=== PATIENT | female | born 1995 | race African-American/Black ===

== ENCOUNTER 2017-11-07 15:06 | Emergency (ER) | payer OTHER, MEDICAID ==
[~2017-11-07] VITALS: Ht 175.3 cm; Wt 160.1 kg
[2017-11-07 15:44] LABS: Urine Bacteria NONE SEEN /hpf (None Seen); Urine Blood Negative /uL (Negative); Urine Mucus FEW (None Seen); Urine Pregnacy Test Negative (Negative); Urine Specific Gravity 1.029 (1.001-1.035); Urine WBC 1 /hpf (0 - 5)
[2017-11-07 15:49] LABS: Alcohol, Urine < 3.0 mg/dL (0-5); Amphetamine Screen, Urine NEGATIVE (NEGATIVE); Barbiturate Scree,Urine NEGATIVE (NEGATIVE); Benzodiazephine Screen, Urine NEGATIVE (NEGATIVE); Cannabinoid Screen, Urine NEGATIVE (NEGATIVE); Cocaine Screen, Urine NEGATIVE (NEGATIVE); Opiate Scree,Urine NEGATIVE (NEGATIVE); Phencyclidine Screen, Urine NEGATIVE (NEGATIVE)
[2017-11-07 15:56] LABS: Eosinophils # (auto) 0.1 uL; Hemoglobin 12.2 g/dL (12.2-16.2); Monocytes # (auto) 0.5 uL; Nucleated Red Blood Cells % 0.2 %; White Blood Cell 6.9 10^3/uL (4.4-10.8)
[2017-11-07 15:58] LABS: Basophils # (auto) 0 uL; Basophils % (auto) 0.6 % (0.0-2.0); Eosinophils % (auto) 1.4 % (0.0-7.0); Hematocrit 37.4 % (36.0-46.0); Lymphocytes % (auto) 43.3 % (10.0-50.0); Mean Corpuscular Hemoglobin 25.2 pg (28.0-32.0); Mean Corpuscular Hgb Conc. 32.6 g/dL (32.0-36.0); Mean Corpuscular Volume 77.5 fL (80.0-100.0); Monocytes % (auto) 7.3 % (0.0-12.0); Neutrophils # (auto) 3.3 uL; Neutrophils % (auto) 47.4 % (37.0-80.0); Platelet Count (auto) 344 10^3/uL (140-450); Red Blood Cells 4.83 10^6/uL (4.0-5.20); Red Cell Distribution Width 14.8 % (11.8-14.3)
[2017-11-07 16:14] LABS: Albumin 3.1 g/dL (3.4-5.0); Anion Gap 6 (5-15); Blood Urea Nitrogen 13 mg/dL (7-18); Calcium 8.3 mg/dL (8.5-10.1); Carbon Dioxide 27 mmol/L (21-32); Chloride 109 mmol/L (98-107); Glucose 99 mg/dL (74-106); Potassium 3.9 mmol/L (3.5-5.1); Sodium 142 mmol/L (136-145)
[2017-11-07 16:16] LABS: Alanine Aminotransferase 30 U/L (13-56); Aspartate Aminotransferase 21 U/L (15-37); BUN/Creatinine Ratio 16.3; GFR African American 115 mL/min; GFR Non-African American 95 mL/min
[2017-11-07 16:20] LABS: Alkaline Phosphatase 108 U/L (45-117); Bilirubin, Total 0.3 mg/dL (0.2-1.0); Total Protein 7.8 g/dL (6.4-8.2)
[2017-11-07 18:40] VITALS: BP 162/97
== END 2017-11-07 19:09 | disposition home or self-care (01) ==
LOC: ER 15:06
DX: R07.89 Other chest pain (principal); I10 Essential (primary) hypertension; Z87.891 Personal history of nicotine dependence
CPT/HCPCS: 36415; 71046; 80053; 80307; 81001; 81025; 84484; 85025; 85379; 93005

== ENCOUNTER 2017-11-20 03:28 | Emergency (ER) | payer OTHER, MEDICAID ==
[~2017-11-20] VITALS: Ht 165.1 cm; Wt 158.8 kg
[2017-11-20 03:54] VITALS: BP 164/99
== END 2017-11-20 07:16 | disposition left against medical advice (07) ==
LOC: ER 03:30
DX: R20.2 Paresthesia of skin (principal); Z53.21 Procedure and treatment not carried out due to patient leaving prior to being seen by health care provider
CPT/HCPCS: 70450

== ENCOUNTER 2017-11-20 12:13 | Emergency (ER) | payer OTHER, MEDICAID ==
[~2017-11-20] VITALS: Ht 175.3 cm; Wt 159.7 kg
[2017-11-20 13:40] LABS: Basophils # (auto) 0 uL; Hemoglobin 13.1 g/dL (12.2-16.2); Lymphocytes # (auto) 2.4 uL; Monocytes # (auto) 0.6 uL; Nucleated Red Blood Cells % 0.1 %
[2017-11-20 13:41] LABS: Basophils % (auto) 0.4 % (0.0-2.0); Eosinophils # (auto) 0.1 uL; Eosinophils % (auto) 0.6 % (0.0-7.0); Hematocrit 39.3 % (36.0-46.0); Mean Corpuscular Hemoglobin 25.5 pg (28.0-32.0); Mean Corpuscular Hgb Conc. 33.4 g/dL (32.0-36.0); Mean Corpuscular Volume 76.4 fL (80.0-100.0); Monocytes % (auto) 7.8 % (0.0-12.0); Neutrophils % (auto) 61.2 % (37.0-80.0); Platelet Count (auto) 338 10^3/uL (140-450); Red Blood Cells 5.14 10^6/uL (4.0-5.20); Red Cell Distribution Width 15.1 % (11.8-14.3); White Blood Cell 8.2 10^3/uL (4.4-10.8)
[2017-11-20 13:49] VITALS: BP 144/89
[2017-11-20 13:54] LABS: Albumin 3.6 g/dL (3.4-5.0); Calcium 8.5 mg/dL (8.5-10.1); Potassium 3.4 mmol/L (3.5-5.1)
[2017-11-20 14:07] LABS: Bilirubin, Total 0.6 mg/dL (0.2-1.0); Total Protein 8.7 g/dL (6.4-8.2)
== END 2017-11-20 15:34 | disposition home or self-care (01) ==
LOC: ER 12:13
DX: R07.89 Other chest pain (principal); I10 Essential (primary) hypertension
CPT/HCPCS: 36415; 80053; 85025; 93005